=== PATIENT | male | born 2000 | race Caucasian/White ===

== ENCOUNTER 2021-11-27 12:06 | Emergency (ER) | payer OTHER, SELFPAY ==
--- NOTE | ~2021-11-27 | XR_ITS ---
EXAMINATION: XR ELBOW, RIGHT CLINICAL INFORMATION: Injury. Pain. COMPARISON: None TECHNIQUE: AP, lateral, and oblique views of the right elbow. FINDINGS: No fracture or dislocation. Alignment is maintained. Joint spaces are maintained. No elbow joint effusion. The soft tissues are unremarkable. XR/XR elbow RT 2V IMPRESSION: Normal right elbow.
[2021-11-27 12:18] VITALS: BP 127/68; PULSE 61; RESP 18; TEMP 36.6; O2SAT 98; BMI 26.6
[2021-11-27 18:27] VITALS: BP 133/65; PULSE 59; RESP 18; O2SAT 100
--- NOTE | 2021-11-27 18:48 | ED.EXTPRO ---
HPI - Extremity Problem General Chief complaint: Extremity Problem Stated complaint: elbow inj Time Seen by Provider: 11/27/21 13:35 Source: patient Mode of arrival: ambulatory Limitations: no limitations History of Present Illness HPI Narrative: 21 year old male presenting for medial elbow pain. The patient reports he was working on a truck on , and while moving his arm the pain started. The pain is intermittent, he rate the pain as a 0/10 at rest, 4/10 with elbow extension + pronation or flextion and 10/10 pain with throwing. He reports the pain mostly stays local, but he had one episode of pins and needles while throwing a rock two days ago. He denies any pain at red, fever, chills, erythema, recent falls, swelling of the joint, IV drug use, clicking or locking sensations. MD Complaint: joint pain Onset (ago): day(s) Pain Consistency: intermittent Location: right Severity scale (1-10): 4 (with movement ) Quality: sharp Radiation: distal Relieving factors: rest Exacerbating factors: range of motion and palpation Related Data Previous Rx's Medication Instructions Recorded naproxen 500 mg tablet 500 mg PO BID PRN pain #20 tabs 11/27/21 Allergies Allergy/AdvReac Type Severity Reaction Status Date / Time No Known Allergies Allergy Verified 11/27/21 18:48 Review of Systems Review of Systems: Constitutional : No Weight loss, No Fever, No Chills Cardiovascular : No Chest Pain, No SOB, No Dyspnea on Exertion, No Orthopnea, No Edema, No Palpitations Respiratory : No Cough, No Sputum, No Wheezing Musculoskeletal : Right elbow pain, No Myalgias, No Joint Swelling Skin : No Skin Lesions, No rash Neuro : No Weakness, No Numbness, + Paresthesias, No Loss of Consciousness, No Dizziness, No Headache Yes all other systems are reviewed and are negative [facility] Past Medical History Attestation statement: The following information was validated with the patient. Source: old records reviewed and nursing notes reviewed Social History Social History Patient Tobacco Use Status: Former Tobacco user Use of substances other than those prescribed or required for medical reasons: No Advance Directives: No Advance Directives Information Provided: No Physical Exam Vital Signs: Vital Signs: Last Vital Signs Temp 98 F 11/27/21 12:18 Pulse 59 11/27/21 18:27 Resp 18 11/27/21 18:27 BP 133/65 11/27/21 18:27 Pulse Ox 100 11/27/21 18:27 O2 Del Method 11/27/21 18:27 BMI result Body Mass Index 26.6 vital signs have been reviewed as normal and appeared to be correct. Blood pressure normal Heart rate normal. Respiration rate normal. Temperature normal. Oxygen saturation normal. Appearance: Alert. Oriented X3. No acute distress. Head: Normal external exam. Normocephalic. Atraumatic. Eyes: Conjunctiva and sclera normal. Eyelids normal. ENT: Moist mucous membranes. Neck: Normal inspection. Neck supple. CVS: Normal heart rate and rhythm. Respiratory: No respiratory distress. Painless inspiration. Skin: Skin warm and dry. Normal skin color. Normal skin turgor. No rashes/lesions/lacerations noted. Extremities: Extremities exhibit normal range of motion. Medial aspect of the right elbow tender to palpation, and 4/10 pain with full flexion, and with full pronation. No signs of infection. Not consistent with joint effusion. No obvious ligamentous or tendon injury noted. Patient has full range of motion of the joint. Neuro: Oriented X 3. No motor deficit. No sensory deficit. Reflexes normal. Normal steady gait. No focal neuro deficits noted. Vascular: + radial pulses/+ 2 b/l. No cyanosis noted to upper extremity nails and lower extremity toes nails. Course Course Course Narrative: 6:50 21 year old male presenting for medial elbow pain. The patient reports he was working on a truck on , and while moving his arm the pain started. The pain is intermittent, he rates the pain as a 0/10 at rest, 4/10 with elbow extension + pronation or flexion and 10/10 pain with throwing. He reports the pain mostly stays local, but he had one episode of pins and needles while throwing a rock two days ago. Patient was evaluated. Noted for point tenderness over the right medial epicondyle. X-ray results showed no fractures. Patient likely has golfers elbow, patient was instructed to take NSAIDS, rest, ice and was given an clara wrap. Discharge Plan Discharge Clinical Impression: Medial epicondylitis of right elbow Patient Disposition: Home, Self-Care Instructions: Elbow Sprain (ED) Prescriptions: New naproxen 500 mg tablet 500 mg PO BID PRN (Reason: pain) Qty: 20 0RF Referrals: Physician,None [Primary Care Provider] - 2 days (your pcp) Print Language: [place]
== END 2021-11-27 19:33 | disposition home or self-care (01) ==
PROVIDERS: Emergency Provider Emergency Medicine
DX: M77.01 Medial epicondylitis, right elbow (principal); Z87.891 Personal history of nicotine dependence; Z79.899 Other long term (current) drug therapy
CPT/HCPCS: 73070; 99283; 99284